=== PATIENT | female | born 1995 | race Caucasian/White ===

== ENCOUNTER 2020-05-10 12:41 | Inpatient (IN) | payer OTHER ==
[~2020-05-10] VITALS: Ht 149.9 cm; Wt 51.7 kg
[2020-05-10 13:00] VITALS: BP 123/74
[2020-05-10] MEDS ORDERED: [UNRECOGNIZED DRUG - OTHER] PO (13:59)
[2020-05-10 14:19] LABS: BILIRUBIN NEGATIVE; BLOOD NEGATIVE (NEGATIVE); CLARITY TURBID (CLEAR); COLOR DARK YELLOW (YELLOW); GLUCOSE NEGATIVE; KETONE 1+; LEUKO ESTERASE 2+ (NEGATIVE); NITRITE POSITIVE (NEGATIVE); SPECIFIC GRAVITY 1.025 (1.001-1.030)
[2020-05-10 14:28] LABS: WBC 31-40 wbc/hpf (0-5)
[2020-05-10 14:29] LABS: BACTERIA 4+; CALCIUM OXALATE CRYSTALS 1+
[2020-05-10 14:36] LABS: URINE AMPHETAMINES > 1000 (1000ng/ml); URINE BARBITURATES < 200 (200ng/ml); URINE BENZODIAZEPINES < 200 (200ng/ml); URINE CANNABINOIDS (THC) < 50 (50ng/ml); URINE COCAINE < 300 (300ng/ml); URINE METHADONE < 300 (300ng/ml); URINE OPIATES > 300 (300ng/ml); URINE PHENCYCLIDINE < 25 (25ng/ml)
[2020-05-10 16:00] VITALS: BP 109/72
[2020-05-10 20:00] VITALS: BP 108/62
[2020-05-11] VITALS: BP 94/51
[2020-05-11 08:00] VITALS: BP 94/56
[2020-05-11 16:00] VITALS: BP 101/66
[2020-05-11 20:00] VITALS: BP 89/53
[2020-05-12] VITALS (7 sets, daily range): BP systolic 78–95; BP diastolic 40–57
[2020-05-13] VITALS: BP 81/42
[2020-05-13 08:00] VITALS: BP 92/50
[2020-05-13 12:00] VITALS: BP 95/51
== END 2020-05-13 15:51 | disposition home or self-care (01) | DRG 773 ==
LOC: 4E 12:41
PROVIDERS: Internal Medicine; ADMIT Internal Medicine; ATTEND Internal Medicine
DX: F11.23 Opioid dependence with withdrawal (principal); F17.210 Nicotine dependence, cigarettes, uncomplicated; F31.9 Bipolar disorder, unspecified; F41.9 Anxiety disorder, unspecified; N39.0 Urinary tract infection, site not specified; Z71.6 Tobacco abuse counseling

== ENCOUNTER → 2020-12-31 | Outpatient (CLI) | payer OTHER ==
[~2020-12-31] MED LIST: [UNRECOGNIZED DRUG - OTHER] PO
[2020-12-31 10:19] LABS: CHLORIDE 110 mmol/L (98-107); POTASSIUM 4.3 mmol/L (3.5-5.1); SODIUM 138 mmol/L (136-145)
[2020-12-31 10:29] LABS: ALBUMIN 4.3 gm/dl (3.1-4.5); ALKALINE PHOSPHATASE 95 U/L (45-117); BUN 9 mg/dl (7-24); CREATININE 0.77 mg/dL (0.55-1.02); SGOT/AST 72 IU/L (3-35); SGPT/ALT 122 U/L (12-78); TOTAL PROTEIN 8.5 gm/dL (6.4-8.2)
[2021-01-01 08:08] LABS: HEP B CORE AB, IGM Indeterminate (Negative); HEPATITIS B SURFACE AG Negative (Negative)
[2021-01-01 11:07] LABS: HEPATITIS C VIRUS ANTIBODY >11.0 s/co (0.0-0.9)
== END | disposition home or self-care (01) ==
LOC: LAB 09:01
PROVIDERS: ATTEND Nurse Practitioner Family
DX: F11.10 Opioid abuse, uncomplicated (principal)